=== PATIENT | male | born 1950 | race Asian ===

== ENCOUNTER 2018-07-13 20:47 | Emergency (ER) | payer SELFPAY ==
[~2018-07-13] VITALS: Ht 170.2 cm; Wt 65.8 kg
[2018-07-13 20:52] VITALS: BP_SYST 131
[2018-07-13] MEDS: KETOROLAC TROMETHAMINE 60 MG/2 ML VIAL IM ONE (21:41)
[2018-07-13 22:13] VITALS: BP_SYST 131
== END 2018-07-13 22:13 | disposition home or self-care (01) ==
LOC: SED 20:47
DX: M54.2 Cervicalgia (principal); M54.5 Low back pain; F17.210 Nicotine dependence, cigarettes, uncomplicated; R03.0 Elevated blood-pressure reading, without diagnosis of hypertension; V53.5XXA Driver of pick-up truck or van injured in collision with car, pick-up truck or van in traffic accident, initial encounter; Y93.89 Activity, other specified; Y92.410 Unspecified street and highway as the place of occurrence of the external cause; Y99.8 Other external cause status
CPT/HCPCS: 96372; 99283; J1885